=== PATIENT | female | born 1995 | race Caucasian/White ===

== ENCOUNTER 2017-07-30 04:59 | Emergency (ER) | payer SELFPAY ==
[~2017-07-30] VITALS: Ht 167.6 cm; Wt 77.1 kg
[2017-07-30 04:59] VITALS: BP_SYST 135
[2017-07-30 05:38] VITALS: BP_SYST 135
== END 2017-07-30 05:38 ==
LOC: SED 04:59
DX: Z02.89 Encounter for other administrative examinations (principal); Z76.0 Encounter for issue of repeat prescription; F41.9 Anxiety disorder, unspecified
CPT/HCPCS: 99283